=== PATIENT | male | born 2000 | race Caucasian/White ===

== ENCOUNTER 2019-02-07 13:11 | Emergency (ER) | payer OTHER ==
[2019-02-07] MEDS ORDERED: IBUPROFEN 600 MG TABLET PO ONE (13:36)
[2019-02-07] MEDS ORDERED: DIPH/PERTUSS(ACELL)/TETANUS VAC/PF 0.5 ML SYR (>=10YO) IM ONE (13:36)
[2019-02-07] MEDS ORDERED: LIDOCAINE 1% INJ (10 MG/ML) 10 ML MDV INJ ONE (13:36)
--- NOTE | 2019-02-07 13:38 | ER Document Report ---
ED Medical Screen (RME) - General Chief Complaint: Hand Injury Stated Complaint: LACERATIONS TO LEFT HAND Time Seen by Provider: 02/07/19 13:33 Primary Care Provider: ARIANE TORRES MD [Primary Care Provider] - Follow up as needed Mode of Arrival: Ambulatory Information source: Patient TRAVEL OUTSIDE OF THE [place] IN LAST 30 DAYS: No - HPI Patient complains to provider of: LEFT HAND INJURY Notes: 02/07/19 13:37 Patient is here with complaints of left hand injury. He states that he was moving a boat when the boat had too much momentum and his hand got caught between the tongue of the boat trailer and the rim of his truck. Noted to have a laceration to the left hand. Unsure of his last tetanus. No other complaints. Exam No distress, nontoxic-appearing. Lungs are clear and equal throughout. Laceration to the left hand just below the left fifth MCP joint on the palmar aspect. No active bleeding. Normal cap refill and sensation distally. Swelling noted. Plan Tetanus update, Motrin, x-ray of the hand, suture repair. An initial examination was made on the patient as part of the triage process, and it was determined a more comprehensive evaluation was necessary. Initial labs were ordered and patient was transferred to another provider in the ED who assumed care and finished evaluation and plan. - Related Data Allergies/Adverse Reactions: No Known Allergies Allergy (Unverified 09/02/13 15:48) Past Medical History - Social History Chew tobacco use (# tins/day): No Frequency of alcohol use: None Drug Abuse: None Renal/ Medical History: Denies: Hx Peritoneal Dialysis - Immunizations Immunizations up to date: Yes Hx Diphtheria, Pertussis, Tetanus Vaccination: Yes Physical Exam - Vital signs Vitals: Temp Pulse Resp BP Pulse Ox 98.2 F 51 L 16 138/76 H 99 02/07/19 13:17 02/07/19 13:17 02/07/19 13:17 02/07/19 13:17 02/07/19 13:17 Course - Vital Signs Vital signs: Temp Pulse Resp BP Pulse Ox 98.2 F 51 L 16 138/76 H 99 02/07/19 13:17 02/07/19 13:17 02/07/19 13:17 02/07/19 13:17 02/07/19 13:17 Doctor's Discharge - Discharge Referrals: ARIANE TORRES MD [Primary Care Provider] - Follow up as needed
--- NOTE | 2019-02-07 14:31 | RADIOLOGY REPORT (SQ) ---
EXAM DESCRIPTION: HAND LEFT 3 VIEWS COMPLETED DATE/TIME: 02/07/2019 2:11 pm REASON FOR STUDY: LACERATION COMPARISON: None. EXAM PARAMETERS: NUMBER OF VIEWS: Three views. TECHNIQUE: AP, lateral and oblique radiographic images acquired of the left hand. LIMITATIONS: None. FINDINGS: MINERALIZATION: Normal. BONES: Comminuted fracture of the proximal phalanx of the left 5th digit. JOINTS: No effusion. SOFT TISSUES: 5th digit soft tissue swelling -laceration. No radiopaque foreign body. OTHER: No other significant finding. IMPRESSION: Comminuted fracture of the proximal phalanx of the left 5th digit.5th digit soft tissue swelling -laceration. No radiopaque foreign body. TECHNICAL DOCUMENTATION: JOB ID: [id number] [place]-72 2010 [employer]- All Rights Reserved Reading location - IP/workstation name: [email or web address]
[2019-02-07] MEDS ORDERED: FENTANYL CITRATE INJ/PF 100 MCG/2 ML AMPUL IV ONE (14:59)
[2019-02-07] MEDS ORDERED: CEFAZOLIN 1 GM/D5W RTU 1 GM/50 ML RTUPB IV SCH ×2 (15:00→21:00)
--- NOTE | 2019-02-07 15:08 | ER Document Report ---
ED General - General Chief Complaint: Hand Injury Stated Complaint: LACERATIONS TO LEFT HAND Time Seen by Provider: 02/07/19 13:33 Primary Care Provider: ARIANE TORRES MD [Primary Care Provider] - Follow up as needed PRANAY AVILA DO [ACTIVE STAFF] - Follow up tomorrow Mode of Arrival: Ambulatory Notes: Patient is a 19-year-old male that presents to the emergency department for chief complaint of left hand injury. Patient states that around noon he was moving a boat trailer, and it started rolling and his hand got trapped between the boat trailer in the room of a tire, and he developed a laceration at the palm of his hand on the left. He is right-handed. He is also having pain in his small finger on the left, and pain with range of motion. He currently rates his pain as a 6 out of 10, describes as a throbbing aching pain. He denies having any numbness, tingling or weakness in his hand or fingers. Denies any other injuries, he did not fall or hit his head. He did not recall his last tetanus vaccination. Past Medical History: Denies chronic medical conditions Past Surgical History: Denies surgical history Social History: Denies tobacco, alcohol or drug use. Family History: Reviewed and noncontributory for presenting illness Allergies: Reviewed, see documented allergy list. REVIEW OF SYSTEMS: Other than noted above, the 12 point review of systems was reviewed with the patient and were negative, all pertinent findings are included in the HPI. PHYSICAL EXAMINATION: Vital signs reviewed, nursing noted reviewed. GENERAL: Well-appearing, well-nourished and in no acute distress. HEAD: Atraumatic, normocephalic. EYES: Eyes appear normal, extraocular movements intact, sclera anicteric, conjunctiva are normal. ENT: nares patent, oropharynx clear without exudates. Moist mucous membranes. NECK: Normal range of motion, supple without lymphadenopathy LUNGS: Breath sounds clear to auscultation bilaterally and equal. No wheezes rales or rhonchi. HEART: Heart rate bradycardic, regular rhythm. ABDOMEN: Soft, nontender, normoactive bowel sounds. No rebound, guarding, or rigidity. No masses appreciated. EXTREMITIES: On the palmar surface of the left hand, about half a centimeter proximal to the metacarpal phalangeal joint of the fifth digit, there is a 2 cm laceration, that appears to be deep through the subcutaneous tissues, tenderness to palpation in the area, tenderness over the proximal and middle phalanx. Flexor tendon function was intact with flexion at the PIP and DIP joints, against resistance. Patient does have pain with range of motion of the left fifth digit, but not of the other digits of the left hand. No other lacerations or injuries noted. NEUROLOGICAL: No focal neurological deficits. Moves all extremities spontaneously Motor and sensory grossly intact on exam. PSYCH: Normal mood, normal affect. SKIN: Warm, Dry, normal turgor, no rashes or lesions noted on exposed skin TRAVEL OUTSIDE OF THE [place] IN LAST 30 DAYS: No - Related Data Allergies/Adverse Reactions: No Known Allergies Allergy (Unverified 09/02/13 15:48) Past Medical History - General Information source: Patient - Social History Smoking Status: Never Smoker Chew tobacco use (# tins/day): No Frequency of alcohol use: None Drug Abuse: None Family History: Reviewed & Not Pertinent Patient has suicidal ideation: No Patient has homicidal ideation: No Renal/ Medical History: Denies: Hx Peritoneal Dialysis - Immunizations Immunizations up to date: Yes Hx Diphtheria, Pertussis, Tetanus Vaccination: Yes Physical Exam - Vital signs Vitals: Temp Pulse Resp BP Pulse Ox 98.2 F 51 L 16 138/76 H 99 02/07/19 13:17 02/07/19 13:17 02/07/19 13:17 02/07/19 13:17 02/07/19 13:17 Course - Re-evaluation Re-evalutation: Patient seen and examined vital signs reviewed. X-rays obtained demonstrated a fracture of the proximal phalanx, that appear to be comminuted, of the left fifth digit. Did not appear to extend into the metacarpal phalangeal joint, the patient's laceration was proximal to this fracture, I do not believe that they communicate. The patient's wound was irrigated extensively, with a liter of saline, and repaired as noted, patient tolerated well. Patient was given a dose of IV antibiotics, due to the deep injury of the hand, he was also given a dose of Motrin, fentanyl, and updated on his tetanus. I do not believe that the patient's wound extended towards the joint, after being probed, I did not see any tendon injury, his tendon function appeared to be intact on my examination even with his fracture present. And his laceration was more proximal to the MCP joint, and not over the fifth digit itself. The patient was re-evaluated and was stable and improved, and was splinted patient will be advised to follow-up with orthopedic surgery, is given to diff erent groups to follow-up with, however could see him sooner. Evaluation was most consistent with left fifth proximal phalanx fracture, left palmar laceration, patient advised to return to the emergency department in 1 week to have his sutures removed, he is also advised to follow-up with orthopedics with their further instructions. He is given a prescription for [place] to take if needed for pain. He is also given a prescription for antibiotics with Augmentin for 7 days. Results were discussed with the patient at this point, after careful consideration I feel that that patient can be discharged from the emergency department, the patient was educated treatments and reasons to return to the emergency department based on their presumed diagnosis as noted above, they were advised to followup with a primary care physician in 2-3 days. Patient was agreeable to plan of care. *Note is created using voice recognition software and may contain spelling, syntax or grammatical errors. Hand X-Ray 02/07/19 13:36 IMPRESSION: Comminuted fracture of the proximal phalanx of the left 5th digit.5th digit soft tissue swelling -laceration. No radiopaque foreign body. - Vital Signs Vital signs: Temp Pulse Resp BP Pulse Ox 97.7 F 50 L 16 126/70 H 100 02/07/19 16:34 02/07/19 16:34 02/07/19 13:17 02/07/19 16:34 02/07/19 16:34 Procedures - Immobilization Left Arm Pre-Proc Neuro Vasc Exam: Normal Immobilizer type: Ulnar Performed by: PCT Post-Proc Neuro Vasc Exam: Normal Alignment checked and good: Yes - Laceration/Wound Repair Left Hand Wound length (cm): 2.2 Wound's Depth, Shape: Into muscle Laceration pre-procedure: Sterile PPE donned, Sterile drapes applied, Shur-Clens applied Anesthetic type: 1% Lidocaine Volume Anesthetic (mLs): 4 Wound explored: Clean Irrigated w/ Saline (mLs): 1,000 Wound Repaired With: Sutures Suture Size/Type: 4:0, Prolene Number of Sutures: 7 Layer Closure?: No Post-procedure wound care: Sterile dressing applied Post-procedure NV exam normal: Yes Complications: No Discharge - Discharge Clinical Impression: Proximal phalanx fracture of finger Qualifiers: Encounter type: initial encounter Finger: little finger Fracture type: closed Fracture alignment: displaced Laterality: left Qualified Code(s): S62.617A - Displaced fracture of proximal phalanx of left little finger, initial encounter for closed fracture Laceration of palm Qualifiers: Encounter type: initial encounter Laterality: left Qualified Code(s): S61.412A - Laceration without foreign body of left hand, initial encounter Condition: Stable Disposition: HOME, SELF-CARE Instructions: Laceration Care (OM), Tetanus Immunization Given ([facility]) Additional Instructions: Follow-up with [facility] Address: [address] [place], [place] [id number] Call for appointment. Prescriptions: Amox Tr/Potassium Clavulanate [Augmentin 875-125 mg Tablet] 1 tab PO BID #14 tablet Hydrocodone/Acetaminophen [[place]field 5-325 mg Tablet] 1 tab PO Q8H PRN #12 tablet PRN Reason: hand pain Referrals: ARIANE TORRES MD [Primary Care Provider] - Follow up as needed PRANAY AVILA DO [ACTIVE STAFF] - Follow up tomorrow
[2019-02-07 16:38] VITALS: BP 126/70
== END 2019-02-07 16:42 | disposition home or self-care (01) ==
LOC: ER 13:11
DX: S62.617A Displaced fracture of proximal phalanx of left little finger, initial encounter for closed fracture (principal); S66.922A Laceration of unspecified muscle, fascia and tendon at wrist and hand level, left hand, initial encounter; S61.412A Laceration without foreign body of left hand, initial encounter; W23.0XXA Caught, crushed, jammed, or pinched between moving objects, initial encounter; Y93.89 Activity, other specified; Y92.009 Unspecified place in unspecified non-institutional (private) residence as the place of occurrence of the external cause; Z23 Encounter for immunization
CPT/HCPCS: 99283; 90471; 96375; 96365; 73130; 90715; 12001; J0690; J3010